=== PATIENT | female | born 1975 | race Caucasian/White ===

== ENCOUNTER 2020-12-23 08:00 | Outpatient (RCR) | payer BC, SELFPAY ==
--- NOTE | 2020-11-13 16:53 | PTOPEVAL ---
INITIAL PHYSICAL THERAPY EVALUATION and PLAN OF CARE Thank you for referring Cortney Pierre to [facility] [place].? Cortney is scheduled to be seen for physical therapy? 1x/week for 6 weeks. Please review, sign, date and return this plan of care DANELLE. I agree with and certify that the following plan of care is medically necessary. Referring Physician Date Admitting Provider: Attending Provider: Grady Watson MD Referring Provider: *PT Outpatient Evaluation Start: 11/13/20 09:10 Freq: Status: Active Protocol: Document 11/13/20 09:10 DELANEY (Rec: 11/13/20 10:33 DELANEY [id number]) Therapy Assessment Status Assessment Status Assessment Status Evaluation Outpatient Past Medical History Past Medical History Source of Past Medical History Patient Gastrointestinal History Hx Irritable Bowel Yes Genitourinary History Hx Urinary Tract Infection Yes Evaluation Information Problem Diagnosis pelvic pain, urinary urgency, stress incontinence Onset x many years Subjective Information Used to be able to go many Query Text:As Reported By Patient/ hours without having to go to Family the bathroom, kind of felt like she has UTI's - if she doesn't drink enough water. Testing in office was negative , but cultured results showed positive results. Was given amitriptyline - initially helped - but now noticing not as helpful. Prior Level of Function Activity Level (Last 3 Months) Occupation cook Hand Dominance Right Medications Home Meds (Include: OTC, RX, Vitamins, questran, amitriptyline Herbals, Dose, Route,and Frequency) Query Text:Home Med Entries Will No Longer Recall From Past Visits. Home Meds Must Be Re-entered With Each Visit. Home Setting Home Type House,Multiple Levels Living Situation With Minor Child,With Spouse Mobility Assistive Devices (Used Last 3 None Months) Comments Additional Prior Level of Function recreation - hiking, bake Comments Pain Assessment Timing of Pain Assessment Timing of Pain Assessment Assessment Pain Scale Pain Scale Used Numeric (1 - 10) Self Report Pain Assessment Lower Abdomen Reported Pain Level 0 Pain Description Burning,Dull,Sharp Lowest Pain Intensity 0 Greatest Pain Intensity 8 Pain Score Pain Score 0: Self Report Cervical and Lumbar ROM Lumbar ROM Lumbar ROM
--- NOTE | 2020-12-23 08:56 | PTOPEVAL ---
PHYSICAL THERAPY DISCHARGE SUMMARY Thank you for referring Cortney Pierre to [facility] [place].? Cortney has done well in PT - goals met. She is to continue with her HEP. I agree with Cortney's discharge from PT. Referring Physician Date Admitting Provider: Attending Provider: Grady Watson MD Referring Provider: Therapy Assessment Status Assessment Status Assessment Status Discharge Outpatient Past Medical History Past Medical History Source of Past Medical History Patient Gastrointestinal History Hx Irritable Bowel Yes Genitourinary History Hx Urinary Tract Infection Yes Evaluation Information Problem Diagnosis pelvic pain, urinary urgency, stress incontinence Subjective Information Cortney reports no abdominal Query Text:As Reported By Patient/ discomfort. Has noticed that Family she gets the discomfort right before her usual menses cycle. No increased urinary irritation sensation present now. Still using pantiliners - but for the most part they are dry. Pain Assessment Self Report Pain Assessment Lower Abdomen Reported Pain Level 0 Lowest Pain Intensity 0 Greatest Pain Intensity 0 Pelvic Health Evaluation Pelvic Floor Assessment Permission Received for External/ Yes: stayed external Internal Perineal Exam Sustained Levator Ani Strength 3+/5 Quick Levator Ani Contraction in 15 7 Seconds PT Clinical Summary Clinical Summary Protocol: PTEVCODE PT Clinical Summary Incontinence Impact Questionnaire - 0% Urogenital Distress Inventory - 22% Cortney is doing well with pelvic floor strengthening, decreasing urinary incontinence - stress and urge , and decrease with abdominal/ pelvic pain. She has met goals set. She is independent and compliant with HEP which she is to continue performing. She is ready for d/c from PT at this time.
== END 2020-12-24 14:43 | disposition home or self-care (01) ==
LOC: ANHPT 08:00
PROVIDERS: PCP Family Medicine; Visit Provider Urology
DX: N39.3 Stress incontinence (female) (male) (principal); R10.2 Pelvic and perineal pain; R39.15 Urgency of urination
CPT/HCPCS: 97014; 97110; 97140; 97161; G0283

== ENCOUNTER → 2021-07-02 14:14 | Outpatient (CLI) | payer BC, SELFPAY ==
--- NOTE | ~2021-07-02 | US_ITS ---
US retroperitoneal comp 07/02/2021 14:32 Procedure: Realtime transabdominal ultrasound of the kidneys and bladder. Indication: Pelvic and perineal pain Comparison: No prior studies for comparison. Findings: Renal echotexture is normal bilaterally without hydronephrosis, contour deforming mass or r enal calculus. The right kidney measures 8.9 cm and left kidney measures 8.3 cm. Bladder within norm al limits. Impression: 1: Unremarkable renal ultrasound. No stones, masses or hydronephrosis. Reviewed, dictated and finalized at location A. CAL TRANSCRIPTION SUPERVISOR Impression: 1: Unremarkable renal ultrasound. No stones, masses or hydronephrosis.
== END ==
PROVIDERS: Visit Provider Nurse Practitioner Adult Health
DX: R10.2 Pelvic and perineal pain (principal)
CPT/HCPCS: 76770

== ENCOUNTER 2025-02-25 13:47 | Outpatient (CLI) | payer OTHER, SELFPAY ==
--- NOTE | ~2025-02-25 | MM_ITS ---
EXAMINATION: MM screening pura BI w johnie HISTORY: Screening TECHNIQUE: Craniocaudal and mediolateral oblique 3-D tomosynthesis images were obtained and synthetic 2-D images were generated. CAD analysis was submitted and interpreted. COMPARISON: No prior mammogram is available for comparison at this institution. BREAST PARENCHYMAL COMPOSITION: Not dense: There are scattered areas of fibroglandular density. FINDINGS: There is a 3 cm mass in the upper outer quadrant of the right breast, anterior-middle depth . There is no mammographic evidence for malignancy in the left breast. IMPRESSION: 1. Right breast mass, upper outer quadrant. 2. Additional mammographic views and possible breast ultrasound are recommended. BI-RADS Category 0: Incomplete: Needs additional imaging evaluation. Reviewed, dictated and finalized at location A. IMPRESSION: 1. Right breast mass, upper outer quadrant. 2. Additional mammographic views and possible breast ultrasound are recommended . BI-RADS Category 0: Incomplete: Needs additional imaging evaluation.
--- OUTSIDE RECORDS SUMMARY | 2025-02-25 13:59 | XMS_ITS | Referral Summary ---
Author Organization [facility] [address] [facility] Address [address] [place] [address] Care Team Providers Care Mold Cleaner Name Role Phone Gerson Yusuf MD Primary Care Provider [phone] Allergies Active Allergy Reactions Criticality Noted Date Comments Cefpodoxime Rash Medium 07/28/2015 Cefprozil Rash Medium 05/09/2020 Iodine Rash Medium 05/09/2020 Other Hives Medium 07/28/2015 Medications colesevelam (WELCHOL) 625 mg tablet Take 3 tablets (1,875 mg total) by mouth 2 (two) times a day with meals 540 tablet 3 11/22/2023 Active Active Problems Problem Noted Date Diagnosed Date Migraine without aura and wi thout status migrainosus, not intractable 09/17/2021 Assessment & Plan (11/18/2021 4:29 PM CDT): Stable, well controlled; patient has only had 1 migraine since last visit Migraines spot well to sumatriptan 50 mg daily Continue to monitor no need for prophylactic treatment at this time Assessment & Plan (09/17/2021 12:14 PM LITIGATION ATTORNEY): Occurs with menstrual cycle, typically lasts for one day -will give trial of sumatriptan for management of migraine headache Irritable bowel syndrome with diarrhea 0 Overview (05/12/2020): Primary symptoms of diarrhea, bloating and abdominal cramping. Assessment & Plan (11/18/2021 4:28 PM CDT): Stable, well controlled, improved with current medications and decreased evidence of UTI pain Continue Welchol 1875 mg b.i.d. with breakfast and dinner Assessment & Plan (09/17/2021 12:12 PM LITIGATION ATTORNEY): Stable, well controlled on cholestyramine; patient is concerned regarding adverse effects of cholestyramnie; would like to try another bile acid sequestrant -today will give trial of Colesevelam; 1875 mg BID; follow-up in 2 months for response to therapy Assessment & Plan (05/12/2020 8:14 AM CDT): Stable, well controlled with cholestyrarmine daily. Continue present medications. Urethral pain 05/09/2020 Overview (05/09/2020): Due to recurrent UTI, since 2014 Assessment & Plan (11/18/2021 4:29 PM CDT): Stable, well controlled; patient has followed up with Urology which demonstrates no clear cause of recurrent infections Continue to treat for UTIs as needed No UTIs since last visit Assessment & Plan (09/17/2021 12:14 PM LITIGATION ATTORNEY): Continues to have recurrent UTIs, follows with urology -fluconzaole 150 mg once, for vaginal candidiasis secondary to antibiotic use Assessment & Plan (05/12/2020 8:16 AM CDT): Pain is well controlled with amitriptyline. Patient has referral to pelvic floor PT, but has not gone at this time. -Continue amitriptyline, fup with referral to PT Routine health maintenance 05/09/2020 Assessment & Plan (05/12/2020 8:16 AM CDT): Check routine labs today. Immunizations Immunization Administration Dates Next Due DTaP 08/22/1999 Flucelvax Influenza Quad 06/19/2019,06/26/2018,1 10/09/2016 Influenza, Quadrivalent, Kimmie l Culture-based MDCK, Preservative Free, Antibiotic Free, Intramuscular 06/23/2020 Influenza, Quadrivalent, Spl it, Preservative Free, Intramuscular 08/30/2016,07/07/2015 Influenza, Trivalent, IM (MDV) 07/08/2014 Influenza, Unspecified 06/27/2023,2021,09/17/2021(Defer red: Patient Refused),08/17/2021,08/22/2020(Deferre d: Patient Refused),06/23/2020 PPD TEST 09/26/2020 Social History Tobacco Use Types Packs/Day Years Used Date Smoking Tobacco: Never Smokeless Tobacco: Never Alcohol Use Standard Drinks/Week Comments Never 0 (1 standard drink = 0.6 oz pur e alcohol) AUDIT-C Answer Date Recorded Q1: How often do you have a drink containing alc ohol? Monthly or less 09/17/2021 Q2: How many drinks containi ng alcohol do you have on a typical day when you are drinking? 1 or 2 09/17/2021 Q3: How often do you have si x or more drinks on one occasion? Never 09/17/2021 PHQ-2 Answer Date Recorded PHQ-2 Total Score 0 11/17/2021 Personal Safety Answer Date Recorded Getting School Help Needed Not on file 11/02 Comments Unknown Sex and Gender Information Value Date Recorded Sex Assigned at Not on file Legal Sex Female 3:49 PM CDT Gender Identity Female 09/17/2021 7:24 AM LITIGATION ATTORNEY Sexual Orientation Straight 09/17/2021 7: 24 AM LITIGATION ATTORNEY Last Filed Vital Signs Vital Sign Reading Time Taken Comments Blood Pressure 132/95 03/27/2022 10:29 AM CDT Pulse 103 03/27/2022 10:29 AM CDT Temperature 37.6 C (99.7 F) 03/27/2022 10:29 AM CDT Respiratory Rate 16 03/27/2022 10:29 AM CDT Oxygen Saturation 97% 03/27/2022 10:29 AM CDT Inhaled Oxygen Concentration - - Weight 67.6 kg (149 lb) 03/27/2022 10:29 AM CDT Height 165.1 cm (5' 5) 03/27/2022 10:29 AM CDT Body Mass Index 24.79 03/27/2022 10:29 AM CDT Plan of Treatment Not on file Insurance [place] Care Teams Mold Cleaner Relationship Specialty Start Date End Date Gerson Yusuf MD [address] [place] [address] PCP - General Family Medicine 05/08/20
--- OUTSIDE RECORDS SUMMARY | 2025-02-25 13:59 | XMS_ITS | Clinical Summary ---
Author Organization [facility] Address [address], [facility] [address] [place] [address] Phone Care Team Providers Care Forest Nursery Supervisor Name Role Phone Vinicio Hui MD Primary Care Provider Allergies Active Allergy Reactions Criticality Noted Date Comments Cefpodoxime Rash 07/28/2015 Iodinated Contrast Media Hives 07/28/2015 Medications Multiple Vitamin (MULTI-VITAMIN PO) Take 1 Tab by mouth daily. Active CALCIUM PO Take 1 Tab by mouth daily. Active Psyllium (METAMUCIL PO) Take 0.5 Doses by mouth daily. Takes 1/2 tsp daily Active Digestive Enzymes (ENZYME DIGEST PO) Take 2 Tabs by mouth daily. ZYPAN Active LACTASE ENZYME PO Take 2 Tabs by mouth daily. LACT-ENZ Active esomeprazole (NEXIUM) 40 MG CAPSULE DELAYED RELEASE Take 1 Cap by mouth every morning (before breakfast). 30 Cap 6 07/29/2015 Active cholestyramine (QUESTRAN) 4 GM/DOSE Powder TAKE DIRECTED 1 Can 6 04/30/2019 Active Active Problems Problem Noted Date Diagnosed Date LUQ pain 07/15/2015 Gastric polyps 07/15/2015 Nausea 07/15/2015 Epigastric pain 07/15/2015 Immunizations Immunization Administration Dates Next Due DTAP VACCINE 08/22/1999 Influenza Vaccine greater than 3 yrs 07/07/2015 Family History Medical History Relation Name Comments Diabetes Father High Cholesterol Father Rashes/Skin Problems Mother Relation Name Status Comments Father Alive Mother Alive Social History Tobacco Use Types Packs/Day Years Used Date Smoking Tobacco: Never Smokeless Tobacco: Never Alcohol Use Standard Drinks/Week Comments No 0 (1 standard drink = 0.6 oz pur e alcohol) Comments No Sex and Gender Information Value Date Recorded Sex Assigned at Not on file Legal Sex Female 10:29 PM CDT Gender Identity Not on file Sexual Orientation Not on file 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 Not on file Not on file Not on aaron e Last Filed Vital Signs Vital Sign Reading Time Taken Comments Blood Pressure 106/72 07/29/2015 11:58 AM RETAIL ASSOCIATE Pulse 83 07/15/2015 2:05 PM RETAIL ASSOCIATE Temperature 36 C (96.8 F) 07/29/2015 11:58 AM RETAIL ASSOCIATE Respiratory Rate 11 07/29/2015 11:58 AM RETAIL ASSOCIATE Oxygen Saturation 99% 07/29/2015 11:58 AM RETAIL ASSOCIATE Inhaled Oxygen Concentration - - Weight 61.2 kg (135 lb) 07/28/2015 1:00 PM RETAIL ASSOCIATE Height 165.1 cm (5' 5) 07/28/2015 1:00 PM RETAIL ASSOCIATE Body Mass Index 22.47 07/28/2015 1:00 PM RETAIL ASSOCIATE Plan of Treatment Health Maintenance Due Date Last Done Comments Hepatitis C Virus (HCV) Screening 1977 Hepatitis B Immunization (1 of 3 - 19+ 3-dose series) 1996 Pap Smear 1998 Cervical Cancer Screening (CCS) 2007 HPV/Cotest 2007 Discussion re Starting/Frequ ency of Mammograms 2017 Colonoscopy 2022 06/12/2008 Colorectal Cancer Screening 2022 Influenza Immunization (#1) 2024 07/07/2015 SARS-COV-2 Immunization ( season) 2024 Respiratory Syncytial Virus (RSV) Immunization (Adult) (1 - 1-dose 75+ series) 2052 DTaP/Tdap/Td Immunization Discontinued 08/22/1999 Meningococcal Immunization (ACWY) Aged Out No longer eligible based on patient's age to complete this topic Pneumococcal Immunization Combined Aged Out No longer eligible b ased on patient's age to complete this topic Rotavirus Immunization Aged Out No lo nger eligible based on patient's age to complete this topic Procedures Procedure Name Priority Date/Time Associated Diagnosis Comments HM COLONOSCOPY Routine 06/12/2008 from Last 3 Months or Most Recently Relevant to Health Maintenance Results * COLONOSCOPY (06/12/2008) José Darrius Kenny DO PROCEDURE/MINOR SURGICAL ORDERA BLES Final Result from Last 3 Months or Most Recently Relevant to Health Maintenance Insurance [facility] Care Teams Forest Nursery Supervisor Relationship Specialty Start Date End Date Vinicio Hui MD [address] [place] [address] PCP - General Family Medicine 07/15/15
--- OUTSIDE RECORDS SUMMARY | 2025-02-25 13:59 | XMS_ITS | Data Portability ---
Author Organization [facility] Address [address] [place] [address] Care Team Providers Care Order Dispatcher Name Role Phone NICOLAS MOON Primary Care Provider Unavailab le Assessment Encounter Date Assessment Date Assessment LastModified by Organization Details LastModified Time 02/01/2024 02/01/2024 eye exam updated recent dentist is due mammogram is due, gyne orders colonoscopy due Not available 02/20/2024 00:37:22 02/05/2025 02/05/2025 eye exam updated recent dentist is UTD mammogram is due, still, we will order now. Colonoscopy/C ologuard due labs due Not available 02/05/2025 09:29:06 Plan of Treatment Reminders Order Date Submit Date Provider Last Modified By Organization Details Last Modified Time Details Appointments ANY 15 2025 08:00A M REMY Stewart Not available Not available Not available Lab TSH + free T4, serum 2024 025 JASEN Valladares, [address], [place], [address], 02/22/2025 07:07:37 CMP, serum or plasma 2024 025 JASEN Valladares, [address], [address], [place], [address], 02/22/2025 07:07:38 CBC w/ auto diff 2024 025 JASEN Valladares, [address], [address], [place], [address], 02/22/2025 07:07:41 vitamin B12 + folate, serum or blood 2024 025 [facility], [address], [address], [place], [address], 02/22/2025 07:07:39 lipid panel, serum 2024 025 [facility], [address], [address], [place], [address], 02/22/2025 07:07:36 noninvasi ve colorecta l cancer DNA + occult blood screening , QL, stool 2024 025 [facility] (Cologuard Orders Only), [address], [address], [place], [address], 02/05/2025 09:28:51 HbA1c (hemoglob in A1c), blood 2024 025 [facility], [address], [address], [place], [address], 02/22/2025 07:07:40 TSH + free T4, serum 2023 024 [facility], [address], [address], [place], [address], 02/10/2024 12:37:32 noninvasi ve colorecta l cancer DNA + occult blood screening , QL, stool 2023 024 [email or web address] [facility] (Cologuard Orders Only), [address], [address], [place], [address], 10/01/2024 12:07:12 CMP, serum or plasma 2023 024 [facility], [address], [address], [place], [address], 02/10/2024 12:37:33 CBC w/ auto diff 2023 024 [facility], [address], [address], [place], [address], 02/10/2024 12:37:35 vitamin B12 + folate, serum or blood 2023 024 [facility], [address], [address], [place], [address], 02/10/2024 12:37:34 lipid panel, serum 2023 024 [facility], [address], [address], [place], [address], 02/10/2024 12:37:32 HbA1c (hemoglob in A1c), blood 2023 024 [facility], [address], [address], [place], [address], 02/10/2024 12:37:34 Referral None recorded. Procedures None recorded. Surgeries None recorded. Imaging MAMMO, screening , digital, bilateral 2024 025 [facility] (Imaging), [address] [place] [address], [address], 02/05/2025 09:50:40 Medication Orders Bactrim DS 800 mg-160 mg tablet 2024 025 [facility] [address] [place], [address], 02/05/2025 09:27:25 Uribel 118 mg-10 mg-40.8 mg-36 mg capsule 2024 025 [facility] [address] [place], [address], 02/05/2025 09:28:24 sumatript an 50 mg tablet 2023 024 [facility] [address] [place], [address], 02/05/2025 09:07:03 Patient TargetsNo targets recorded. Patient InstructionsNo instructions recorded. Reason for Referral None Reported. Results Created Date Observation Date Name Description Value Unit Range Abnormal Flag Note LastModifiedBy Organization Detail LastModifiedTime 02/01/20 25 01/31/2025 COLOG UARD cologuard result Cancel led - Order d not applic able Not Available [facility] (Cologuard Orders Only) [address], [place], [address], 01/31/2025 04:06:14 02/09/20 24 02/10/2024 LIPID PANEL W/ CHOL/ HDL RATIO cholesterol, total 275 mg/dL 100-19 9 above high normal Not Available [facility] ([facility]) [address] [place], [address], 02/10/2024 12:37:32 02/09/20 24 02/10/2024 LIPID PANEL W/ CHOL/ HDL RATIO triglyceride s 127 mg/dL 0-149 Not Available [facility] ([facility]) [address] [place], [address], 02/10/2024 12:37:32 02/09/20 24 02/10/2024 LIPID PANEL W/ CHOL/ HDL RATIO HDL cholesterol 62 mg/dL >39 Not Available [facility] ([facility]) [address] [place], [address], 02/10/2024 12:37:32 02/09/20 24 02/10/2024 LIPID PANEL W/ CHOL/ HDL RATIO VLDL cholesterol ayah 23 mg/dL 5-40 Not Available [facility] ([facility]) [address] [place], [address], 02/10/2024 12:37:32 02/09/20 24 02/10/2024 LIPID PANEL W/ CHOL/ HDL RATIO LDL chol calc ([facility]) 190 mg/dL 0-99 above high normal Not Available [facility] ([facility]) [address] [place], [address], 02/10/2024 12:37:32 02/09/20 24 02/10/2024 LIPID PANEL W/ CHOL/ HDL RATIO T. chol/HDL ratio 4.4 ratio 0.0-4. 4 T. Chol/ HDL Ratio Men Women 1/2 Avg.R isk 3.4 3.3 Avg.R isk 5.0 4.4 2X Avg.R isk 9.6 7.1 3X Avg.R isk 23.4 11.0 Not Available [facility] ([facility]) [address] [place], [address], 02/10/2024 12:37:32 02/09/20 24 02/10/2024 TSH+F REE T4 TSH 1.950 uIU/m L 0.450- 4.500 Not Available [facility] ([facility]) [address] [place], [address], 02/10/2024 12:37:32 02/09/20 24 02/10/2024 TSH+F REE T4 T4,free(dire ct) 1.19 NG/dL 0.82-1 .77 Not Available [facility] ([facility]) [address] [place], [address], 02/10/2024 12:37:32 02/09/20 24 02/10/2024 COMP. METAB OLIC PANEL (14) glucose 89 mg/dL 70-99 Not Available [facility] ([facility]) [address] [place], [address], 02/10/2024 12:37:33 02/09/20 24 02/10/2024 COMP. METAB OLIC PANEL (14) BUN 16 mg/dL 6-24 Not Available [facility] ([facility]) [address] [place], [address], 02/10/2024 12:37:33 02/09/20 24 02/10/2024 COMP. METAB OLIC PANEL (14) creatinine 0.61 mg/dL 0.57-1 .00 Not Available [facility] ([facility]) [address] [facility] [place], [address], 02/10/2024 12:37:33 02/09/20 24 02/10/2024 COMP. METAB OLIC PANEL (14) eGFR 112 mL/mi n/1.7 3 >59 Not Available [facility] ([facility]) [address] [facility] [place], [address], 02/10/2024 12:37:33 02/09/20 24 02/10/2024 COMP. METAB OLIC PANEL (14) BUN/creatini ne ratio 26 9-23 above high normal Not Available [facility] ([facility]) [address] [facility], [place], [address], 02/10/2024 12:37:33 02/09/20 24 02/10/2024 COMP. METAB OLIC PANEL (14) sodium 136 mmol/ L 134-14 4 Not Available [facility] ([facility]) [address] [place], [address], 02/10/2024 12:37:33 02/09/20 24 02/10/2024 COMP. METAB OLIC PANEL (14) potassium 4.5 mmol/ L 3.5-5. 2 Not Available [facility] ([facility]) [address] [place], [address], 02/10/2024 12:37:33 02/09/20 24 02/10/2024 COMP. METAB OLIC PANEL (14) chloride 99 mmol/ L 96-106 Not Available [facility] ([facility]) [address] [place], [address], 02/10/2024 12:37:33 02/09/20 24 02/10/2024 COMP. METAB OLIC PANEL (14) carbon dioxide, total 25 mmol/ L 20-29 Not Available [facility] ([facility]) [address] [place], [address], 02/10/2024 12:37:33 02/09/20 24 02/10/2024 COMP. METAB OLIC PANEL (14) calcium 9.5 mg/dL 8.7-10 .2 Not Available [facility] ([facility]) [address] [facility], [place], [address], 02/10/2024 12:37:33 02/09/20 24 02/10/2024 COMP. METAB OLIC PANEL (14) protein, total 7.3 g/dL 6.0-8. 5 Not Available [facility] ([facility]) [address] [facility], [place], [address], 02/10/2024 12:37:33 02/09/20 24 02/10/2024 COMP. METAB OLIC PANEL (14) albumin 4.5 g/dL 3.9-4. 9 Not Available [facility] ([facility]) [address] [facility] [place], [address], 02/10/2024 12:37:33 02/09/20 24 02/10/2024 COMP. METAB OLIC PANEL (14) globulin, total 2.8 g/dL 1.5-4. 5 Not Available [facility] ([facility]) [address] [facility] [place], [address], 02/10/2024 12:37:33 02/09/20 24 02/10/2024 COMP. METAB OLIC PANEL (14) bilirubin, total 0.7 mg/dL 0.0-1. 2 Not Available [facility] ([facility]) [address] [facility], [place], [address], 02/10/2024 12:37:33 02/09/20 24 02/10/2024 COMP. METAB OLIC PANEL (14) alkaline phosphatase 76 IU/L 44-121 Not Available [facility] ([facility]) [address] [facility], [place], [address], 02/10/2024 12:37:33 02/09/20 24 02/10/2024 COMP. METAB OLIC PANEL (14) AST (SGOT) 24 IU/L 0-40 Not Available [facility] ([facility]) [address] [place], [address], 02/10/2024 12:37:33 02/09/20 24 02/10/2024 COMP. METAB OLIC PANEL (14) ALT (SGPT) 32 IU/L 0-32 Not Available [facility] ([facility]) [address] [facility], [place], [address], 02/10/2024 12:37:33 02/09/20 24 02/10/2024 VITAM IN B12 AND FOLAT E vitamin B12 798 pg/mL 232-12 45 Not Available [facility] ([facility]) [address] [facility], [place], [address], 02/10/2024 12:37:34 02/09/20 24 02/10/2024 VITAM IN B12 AND FOLAT E folate (folic acid), serum >20.0 NG/mL >3.0 A serum folat e luke ntrat ion of less than 3.1 ng/mL is consi dered to repre sent clini ayah defic iency . Not Available [facility] ([facility]) [address] [facility], [place], [address], 02/10/2024 12:37:34 02/09/20 24 02/10/2024 HEMOG LOBIN A1C hemoglobin A1C 5.4 % 4.8-5. 6 Predi abete s: 5.7 - 6.4 Diabe pacheco: >6.4 Glyce karissa contr ol for adult s with diabe pacheco: <7.0 Not Available [facility] ([facility]) [address] [place], [address], 02/10/2024 12:37:34 02/09/20 24 02/10/2024 CBC WITH DIFFE RENTI AL/PL ATELE T WBC 6.7 x10e3 /uL 3.4-10 .8 Not Available [facility] ([facility]) [address] [facility], [place], [address], 02/10/2024 12:37:35 02/09/20 24 02/10/2024 CBC WITH DIFFE RENTI AL/PL ATELE T RBC 5.18 x10e6 /uL 3.77-5 .28 Not Available [facility] ([facility]) [address] [facility], [place], [address], 02/10/2024 12:37:35 02/09/20 24 02/10/2024 CBC WITH DIFFE RENTI AL/PL ATELE T hemoglobin 15.2 g/dL 11.1-1 5.9 Not Available [facility] ([facility]) [address] [facility], [place], [address], 02/10/2024 12:37:35 02/09/20 24 02/10/2024 CBC WITH DIFFE RENTI AL/PL ATELE T hematocrit 46.3 % 34.0-4 6.6 Not Available [facility] ([facility]) [address] [place], [address], 02/10/2024 12:37:35 02/09/20 24 02/10/2024 CBC WITH DIFFE RENTI AL/PL ATELE T MCV 89 fL 79-97 Not Available [facility] ([facility]) [address] [place], [address], 02/10/2024 12:37:35 02/09/20 24 02/10/2024 CBC WITH DIFFE RENTI AL/PL ATELE T MCH 29.3 pg 26.6-3 3.0 Not Available [facility] ([facility]) [address] [place], [address], 02/10/2024 12:37:35 02/09/20 24 02/10/2024 CBC WITH DIFFE RENTI AL/PL ATELE T MCHC 32.8 g/dL 31.5-3 5.7 Not Available [facility] ([facility]) [address] [facility], [place], [address], 02/10/2024 12:37:35 02/09/20 24 02/10/2024 CBC WITH DIFFE RENTI AL/PL ATELE T RDW 12.1 % 11.7-1 5.4 Not Available [facility] ([facility]) [address] [facility], [place], [address], 02/10/2024 12:37:35 02/09/20 24 02/10/2024 CBC WITH DIFFE RENTI AL/PL ATELE T platelets 366 x10e3 /uL 150-45 0 Not Available [facility] ([facility]) [address] [facility], [place], [address], 02/10/2024 12:37:35 02/09/20 24 02/10/2024 CBC WITH DIFFE RENTI AL/PL ATELE T neutrophils 60 % notest ab. Not Available [facility] ([facility]) [address] [facility], [place], [address], 02/10/2024 12:37:35 02/09/20 24 02/10/2024 CBC WITH DIFFE RENTI AL/PL ATELE T lymphs 27 % notest ab. Not Available [facility] ([facility]) [address] [facility], [place], [address], 02/10/2024 12:37:35 02/09/20 24 02/10/2024 CBC WITH DIFFE RENTI AL/PL ATELE T monocytes 10 % notest ab. Not Available [facility] ([facility]) [address] [facility], [place], [address], 02/10/2024 12:37:35 02/09/20 24 02/10/2024 CBC WITH DIFFE RENTI AL/PL ATELE T eos 2 % notest ab. Not Available [facility] ([facility]) [address] [place], [address], 02/10/2024 12:37:35 02/09/20 24 02/10/2024 CBC WITH DIFFE RENTI AL/PL ATELE T basos 1 % notest ab. Not Available [facility] ([facility]) [address] [place], [address], 02/10/2024 12:37:35 02/09/20 24 02/10/2024 CBC WITH DIFFE RENTI AL/PL ATELE T neutrophils (absolute) 4.0 x10e3 /uL 1.4-7. 0 Not Available [facility] ([facility]) [address] [place], [address], 02/10/2024 12:37:35 02/09/20 24 02/10/2024 CBC WITH DIFFE RENTI AL/PL ATELE T lymphs (absolute) 1.8 x10e3 /uL 0.7-3. 1 Not Available [facility] ([facility]) [address] [place], [address], 02/10/2024 12:37:35 02/09/20 24 02/10/2024 CBC WITH DIFFE RENTI AL/PL ATELE T monocytes(ab solute) 0.7 x10e3 /uL 0.1-0. 9 Not Available [facility] ([facility]) [address] [place], [address], 02/10/2024 12:37:35 02/09/20 24 02/10/2024 CBC WITH DIFFE RENTI AL/PL ATELE T eos (absolute) 0.1 x10e3 /uL 0.0-0. 4 Not Available [facility] ([facility]) [address] [place], [address], 02/10/2024 12:37:35 02/09/20 24 02/10/2024 CBC WITH DIFFE RENTI AL/PL ATELE T baso (absolute) 0.1 x10e3 /uL 0.0-0. 2 Not Available [facility] ([facility]) [address] [facility], [place], [address], 02/10/2024 12:37:35 02/09/20 24 02/10/2024 CBC WITH DIFFE RENTI AL/PL ATELE T immature granulocytes 0 % notest ab. Not Available [facility] ([facility]) [address] [facility], [place], [address], 02/10/2024 12:37:35 02/09/20 24 02/10/2024 CBC WITH DIFFE RENTI AL/PL ATELE T immature grans (abs) 0.0 x10e3 /uL 0.0-0. 1 Not Available [facility] ([facility]) [address] [facility], [place], [address], 02/10/2024 12:37:35 Result Notes None recorded. Problems Name Problem SNOMED Code Status Onset Date Resolution Date Notes Provider Name and Address Organization Details Recorded Time Irritable bowel syndrome with diarrhea 629792347 Active 2023 REMY Stewart Attn: Sheldon moser,[address] [facility], [place], [address], [place] [facility] 4 00:36:40 Migraine 51252691 Active 2023 REMY Stewart Attn: Sheldon moser,[address] [facility], [place], [address], [place] [facility] 4 00:36:51 Long-term drug therapy Active 2023 REMY Stewart Attn: Sheldon g,[address] [facility], [place], [address], [place] [facility] 4 00:36:55 Body mass index 20-24 - normal 495368002 Active 2024 Caridad Melchor MA null, [facility] 5 09:08:01 Hyperlipidemia 88694539 Active 2024 REMY Stewart Attn: Sheldon moser,[address], [place], [address], [facility] 5 09:29:08 Problem Notes None recorded. Procedures Surgical History Date Name Laterality Status Provider Name and Address Organization Details Recorded Time Tonsillectomy completed Caridad Melchor MA [facility] 02/01/2024 12:18:59 Imaging Results None recorded. Procedure Notes None recorded. Medical Equipment None Reported. Allergies Allergen ID Allergen Name Allergen Category Reaction Reaction Severity Criticality Documentation Date Start Date Code Code System Note Provider Name and Address Organization Details Recorded Time 17391023 Cefzil medicatio n rash severe high 03/07/2024 70796 1 RxNorm Shantelle Stewart LPN null, [facility] 4 10:54:55 Medications Name Sig Start Date Stop Date Status Note LastModified by Organization Details LastModified Time fluconazole 150 mg tablet TAKE 1 TABLET BY MOUTH EVERY 72 HOURS 02/05 completed Not Available Not Available Not Available sumatriptan 100 mg tablet Take by oral route. 01/31 completed 50mg Not Available Not Available Not Available prednisone 20 mg tablet TAKE 1 TABLET BY MOUTH IN THE MORNING AND AT NOON AND AT BEDTIME , DO ALL THIS FOR 5 DAYS , TAKE WITH FOOD 02/05 completed Not Available Not Available Not Available sumatriptan 50 mg tablet take 1 tab po at onset of migraine. may repeat in 1 hour if needed. max 200mg/24 hours. active prn Not Available Not Available No t Available ciprofloxac in 500 mg tablet TAKE 1 TABLET BY MOUTH TWICE DAILY WHEN HAVING SYMPTOMS OF UTI 02/05 completed Not Available Not Available Not Available sulfamethox azole 800 mg-trimetho prim 160 mg tablet TAKE 1 TABLET BY MOUTH EVERY 12 HOURS active Not Available Not Available No t Available famotidine 20 mg tablet TAKE 1 TABLET BY MOUTH IN THE MORNING AND AT BEDTIME , DO ALL THIS FOR 7 DAYS 02/05 completed Not Available Not Available Not Available colesevelam 625 mg tablet TAKE 3 TABLETS BY MOUTH TWICE DAILY WITH MEALS 02/05 completed Not Available Not Available Not Available cholestyram ine (with sugar) 4 gram oral powder Take by oral route for 42 days. active Not Available Not Available No t Available Uro-MP 118 mg-10 mg-40.8 mg-36 mg capsule TAKE 1 CAPSULE BY MOUTH 4 TIMES DAILY NEEDED FOR URINARY INFECTION active Not Available Not Available No t Available Vitals Date Recorded Body height Body mass index (BMI) Body weight Respiratory rate Oxygen saturation Oxygen saturation in Arterial blood by Pulse oximetry Heart rate Systolic And Diastolic Provider Name and Address Organization Details Last Updated DateTime 4 167.64 cm 24.1 kg/m2 70032.6 2 g 20 /min 99 % 99 % 108 /min 136/82 mm[Hg] Caridad Melchor MA [facility] 4 11:43:22 Date Recorded Respiratory rate Systolic And Diastolic Provider Name and Address Organization Details Last Updated DateTime 02/05/2025 18 /min 110/80 mm[Hg] REMY Stewart Attn: Accounting[address] [place], [address], [facility] 02/05/2025 09:32:09 Date Recorded Body weight Body mass index (BMI) Body height Oxygen saturation Oxygen saturation in Arterial blood by Pulse oximetry Heart rate Systolic And Diastolic Provider Name and Address Organization Details Last Updated DateTime 5 [address]10.4 9 g 23.6 kg/m2 167.64 cm 98 % 98 % 118 /min 142/80 mm[Hg] Caridad Melchor MA [facility] 5 09:09:19 Social History Question Answer Notes LastModified by Organizat ion Details LastModified Time Tobacco Smoking Status Never Smoker Caridad Melchor MA null, [facility] 01/31/2024 12:10:46 Do You Have An Advance Directive? Yes Information not available 02/01/2024 Are You Blind Or Do You Have Difficulty Seeing? No Glasses Information not available 01/31/2024 What Is Your Level Of Caffeine Consumption? Occasional Sometimes Information not available 01/31/2024 In The 14 Days Before Symptom Onset, Have You Had Close Contact With A Laboratory-confir med COVID-19 While That Case Was Ill? No Information not available 01/31/2024 In The 14 Days Before Symptom Onset, Have You Had Close Contact With A Person Who Is Under Investigation For COVID-19 While That Person Was Ill? No Information not available 01/31/2024 Have You Been To An Area Known To Be High Risk For COVID-19? No Information not available 01/31/2024 Are You Deaf Or Do You Have Serious Difficulty Hearing? No Information not available 01/31/2024 Are There Any Guns Present In Your Home? No Information not available 01/31/2024 What Was The Date Of Your Most Recent Tobacco Screening? 02/05/2025 Information not available 02/05/2025 Do You Use Your Seat Belt Or Car Seat Routinely? Yes Information not available 01/31/2024 Do You Have Smoke And Carbon Monoxide Detectors In Your Home? Yes Information not available 01/31/2024 Do You Use Sunscreen Routinely? No Information not available 01/31/2024 Has Tobacco Cessation Counseling Been Provided? Yes Information not available 01/31/2024 On What Date Was Tobacco Cessation Counseling Provided? 02/05/2025 Information not available 02/05/2025 Sex: Female Functional Status Question Answer Note LastModified by Organizat ion Details LastModified Time Do you use any illicit or recreational drugs? No Information not available 01/31/2024 Do you or have you ever used any other forms of tobacco or nicotine? No Information not available 01/31/2024 What is your level of alcohol consumption? Occasional Information not available 01/31/2024 Are you currently employed? Yes Information not available 02/05/2025 Are you able to care for yourself? Yes Information n ot available 01/31/2024 What is your exercise level? Occasional Information not available 01/31/2024 Mental Status None recorded. Family History Relationship Description Onset Age of this Age Resolved Age Notes LastModified by Organization Details LastModified Time Father Depressive disorder [email or web address] Not available 2023 12:19:11 Father Hypertensive disorder [email or web address] Not available 2023 12:19:18 Medical History Condition Response Coronary Artery Disease N Other N Atrial Fibrillation N High Blood Pressure N Depression N COPD N Blood Clots N Anxiety Disorder N Muscle, Joint, or Bone Problems N Acid Reflux (GERD) N Cancer N Stroke N High Cholesterol N Liver Disease N Headaches Y Kidney or Bladder Problems N Thyroid Problems N GI Problems Y Skin Problems N Anemia N Heart Attack ([place]) N Diabetes N Seizures/Epilepsy N Asthma N Allergies N Hepatitis N Heart Failure N Osteoporosis N Gynecological History Statement/Question Response Flow Moderate Date of LMP 01/16/2025 Menses Monthly Y Duration of Flow (days) 5 Current Control Method None LMP Definite Obstetrics History GPAL:G 2 P 2 0 0 2 Type Value Full Term 2 Induced 0 Spontaneous 0 Premature 0 Living 2 Total 2 Immunizations Vaccine Type Date Status Note Provider Nam e and Address Organization Details Recorded Time DTaP 0 completed Not Available [facility] 02/05/2025 09:06:02 Influenza, split virus, trivalent, preservative 4 completed Not Available [facility] 02/05/2025 09:06:02 Influenza, split virus, quadrivalent, PF 5 completed Not Available [facility] 02/05/2025 09:06:02 Influenza, split virus, quadrivalent, PF 7 completed Not Available [facility] 02/05/2025 09:06:02 Influenza, MDCK, quadrivalent, PF 7 completed Not Available [facility] 02/05/2025 09:06:02 Influenza, MDCK, quadrivalent, PF 8 completed Not Available [facility] 02/05/2025 09:06:02 Influenza, MDCK, quadrivalent, PF 9 completed Not Available [facility] 02/05/2025 09:06:02 Influenza, MDCK, quadrivalent, PF 0 completed Not Available [facility] 02/05/2025 09:06:02 COVID-19, mRNA, LNP-S, PF, 30 mcg/0.3 mL dose 1 completed Not Available [facility] 02/05/2025 09:06:02 COVID-19, mRNA, LNP-S, PF, 30 mcg/0.3 mL dose 1 completed Not Available [facility] 02/05/2025 09:06:02 Influenza, MDCK, quadrivalent, PF 1 completed Not Available [facility] 02/05/2025 09:06:02 COVID-19, mRNA, LNP-S, PF, 30 mcg/0.3 mL dose 1 completed Not Available [facility] 02/05/2025 09:06:02 Influenza, MDCK, quadrivalent, PF 2 completed Not Available [facility] 02/05/2025 09:06:02 Influenza, MDCK, quadrivalent, PF 3 completed Not Available [facility] 02/05/2025 09:06:02 Influenza, MDCK, trivalent, PF 4 completed Not Available [facility] 02/05/2025 09:06:02 Past Encounters Encounter ID Performer Location Encounter Start Date Encounter Closed Date Diagnosis/Indication Diagnosis SNOMED-CT Code Diagnosis ICD10 Code Diagnosis Note [id number] Seng Angela MD ON LICENSE OF [facility] [address] [employer] [id number] 02/01/2024 11:21:00 02/01/2024 12:16:49 Adult health examination 076612226 Z00.01 annual wellness completed Cholesterol screening 27 0532932 Z13.220 fasting lipids due. Diabetes m ellitus screening 342062387 Z13.1 a1c screening due Thyroid di sorder screening 036483961 Z13.29 routine thyroid panel due Migraine 93591301 G43.90 9 refill on sumatripta n 50mg as directed Irritable bowel syndrome with diarrhea 288070283 K58.0 on colesevela m tablets daily. Long-term drug therapy 330768085 Z79.899 cmp, cbc and b12, folate labs are due Screening for malignant neoplasm of colon 822588283 Z12.11 pt opts for cologuard screening method. [id number] Seng Angela MD ON LICENSE OF [facility] [employer] [facility] [place] [address] [place] [address] 02/05/2025 08:52:12 02/05/2025 09:46:53 Body mass index 20-24 - normal 475898512 Z68.23 BMI is 23.6 Adult heal th examination 946942486 Z00.01 annual wellness completed Diabetes m ellitus screening 902348510 Z13.1 a1c screening due Thyroid di sorder screening 671008542 Z13.29 routine thyroid panel due Migraine 04687107 G43.90 9 on sumatripta n 50mg as directed, stable Irritable bowel syndrome with diarrhea 110127483 K58.0 on colesevela m tablets daily. Long-term drug therapy 971038166 Z79.899 cmp, cbc and b12, folate labs are due Screening for malignant neoplasm of colon 664552416 Z12.11 pt opts for cologuard screening method. Hyperlipidemia 83803250 E78.5 History of hyperlipid emia, patient is not on medication directly but is on cholestyra mine tablets for her IBS D. Is due for updated fasting lipid panel Acute urin marcus tract infection 940740797 N39.0 For acute UTI symptoms start Bactrim DS twice daily and patient requests Uribel prescripti on Screening mammography 24 700260 Z12.31 Mammogram due Health Concerns Section Related Observation LastModified by Organization Detai ls LastModified Time None Recorded Concern Status LastModified by Organization Details LastModified Time None Recorded Advance Directives Directive Y: Payers Insurance Date Sequence Insurance Name Policy Number Policy Rice Covered Member ID Rice Member ID Guarantor Name 02/04/2025 1 [place] [id number] Ismael Pierre [id number] Cortney Burlesonx 02/05/2025 1 [employer] [id number] Ismael Pierre [id number] Cortney Pierre Notes Date Note Type Note Provider Name and Address Organization Details Recorded Time 02/01/2024 text/html IBS-D hx. pt takes questran capsules.Extensi ve UTI hx. full urology w/u. pelvic floor therapy did not help.migraine hx. pt has triptan therapy for PRN use. due for labs. due for colon screening. REMY Stewart Attn: Accounting,[address] [place], [address], [facility] 02/20/2024 00:37:38 02/05/2025 text/html IBS-D hx. pt takes questran capsules.Extensi ve UTI hx. full urology w/u. pelvic floor therapy did not help.migraine hx. pt has triptan therapy for PRN use.Due for labs and colon screening REMY Stewart Attn: Accounting,[address], [place], [address], [facility] 02/17/2025 21:18:51 OBGyn Episode No OBEpisode recorded.
--- OUTSIDE RECORDS SUMMARY | 2025-02-25 13:59 | XMS_ITS | Clinical Summary ---
Author Organization [facility] [place] [facility] Address [address] [place] [address] Care Team Providers Care Slitter Cut Off Operator Name Role Phone Gerson Yusuf MD Primary Care Provider [phone] Allergies Active Allergy Reactions Criticality Noted Date [...] time Assessment & Plan (09/17/2021 12:14 PM CUSTOMER ASSISTANCE ASSOCIATE): Occurs with menstrual cycle, typically lasts for [...] dinner Assessment & Plan (09/17/2021 12:12 PM CUSTOMER ASSISTANCE ASSOCIATE): Stable, well controlled on cholestyramine; patient is [...] visit Assessment & Plan (09/17/2021 12:14 PM CUSTOMER ASSISTANCE ASSOCIATE): Continues to have recurrent UTIs, follows with [...] Refused),08/17/2021,08/22/2020(Deferre d: Patient Refused),06/23/2020 PPD TEST 09/26/2020 Surgical History Surgery Date Site/Laterality Comments TONSILLECTOMY 08/22/1984 - 08/21/1985 Medical History Medical History Date Comments Irritable bowel syndrome 2009 UTI (urinary tract infection) 2014 Family History Medical History Relation Name Comments Diabetes Father Heart disease Paternal Grandfather Relation Name Status Comments Father Alive Mother Alive Paternal Grandfather Social History Tobacco Use Types Packs/Day Years [...] CDT Gender Identity Female 09/17/2021 7:24 AM CUSTOMER ASSISTANCE ASSOCIATE Sexual Orientation Straight 09/17/2021 7: 24 AM CUSTOMER ASSISTANCE ASSOCIATE Obstetrics History Last Filed Vital Signs Vital Sign Reading [...] 03/27/2022 10:29 AM CDT Plan of Treatment Health Maintenance Due Date Last Done Comments Breast Cancer Screening-Mammogram 1977 Cervical Cancer Screening 1977 Colon Cancer Screening-Colonoscopy 1977 Hepatitis C Screening 1977 Hepatitis B Screening 1995 Regular Well Visit/Exam 18-64 1995 Depression Screening 11/17/2022 11/17/2021, 09/17/2021, 05/09/2020 Influenza Vaccine (#1) 2025 3, 06/23/2022, 08/17/2021, Additional history exists DTaP/Tdap/Td Vaccine Discontinued 08/22/1999 Pneumococcal vaccine <65 Aged Out No longer eligible based on patient's age to complete this topic Insurance [facility] [place] [facility] Care Teams Slitter Cut Off Operator Relationship Specialty Start Date End Date [place] [address] PCP - General Family Medicine 05/08/20
== END 2025-02-25 13:48 | disposition home or self-care (01) ==
LOC: CHSIMG 13:54
PROVIDERS: PCP Physician Assistant; Visit Provider Physician Assistant
DX: Z12.31 Encounter for screening mammogram for malignant neoplasm of breast (principal); R92.8 Other abnormal and inconclusive findings on diagnostic imaging of breast
CPT/HCPCS: 77063; 77067

== ENCOUNTER 2025-03-05 09:41 | Outpatient (CLI) | payer OTHER, SELFPAY ==
--- NOTE | ~2025-03-05 | MMUS_ITS ---
EXAMINATION: MM diagnostic pura BI w johnie, US breast RT limited HISTORY: Follow-up right breast mass TECHNIQUE: Additional 3-D tomosynthesis images of the right breast were performed and synthetic 2-D i mages were generated. CAD analysis was submitted and interpreted. High resolution Limited right breas t ultrasound was performed. COMPARISON: 02/25/2025 BREAST PARENCHYMAL COMPOSITION: Not dense: There are scattered areas of fibroglandular density. FINDINGS: MAMMOGRAPHIC FINDINGS: There is a mass in the mid outer aspect of the right breast at approximately 9:00, anterior-middle de pth. There are no additional masses, calcifications or architectural distortion in the right breast. ULTRASOUND: Limited right breast ultrasound: At 10:00, 1-2 cm from the nipple there is a cyst corresponding to th e mammographic finding measuring 2.8 cm. No suspicious solid masses are visualized. IMPRESSION: 1. No evidence for malignancy in the right breast. 2. Routine yearly screening mammogram and regular clinical breast examination are recommended. BI-RADS Category 2: Benign finding(s). Reviewed, dictated and finalized at location B. IMPRESSION: 1. No evidence for malignancy in the right breast. 2. Routine yearly screening mammogram and regular clinical breast examination a re recommended. BI-RADS Category 2: Benign finding(s).
--- OUTSIDE RECORDS SUMMARY | 2025-03-05 09:56 | XMS_ITS | Clinical Summary ---
Author Organization [facility] Address [address], 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 Not on file Not on file Not on aaron e Last Filed Vital Signs Vital Sign Reading Time Taken Comments Blood Pressure 106/72 07/29/2015 11:58 AM WHEEL ADJUSTER Pulse 83 07/15/2015 2:05 PM WHEEL ADJUSTER Temperature 36 C (96.8 F) 07/29/2015 11:58 AM WHEEL ADJUSTER Respiratory Rate 11 07/29/2015 11:58 AM WHEEL ADJUSTER Oxygen Saturation 99% 07/29/2015 11:58 AM WHEEL ADJUSTER Inhaled Oxygen Concentration - - Weight 61.2 kg (135 lb) 07/28/2015 1:00 PM WHEEL ADJUSTER Height 165.1 cm (5' 5) 07/28/2015 1:00 PM WHEEL ADJUSTER Body Mass Index 22.47 07/28/2015 1:00 PM WHEEL ADJUSTER Plan of Treatment Health Maintenance Due Date Last Done Comments Hepatitis C Virus (HCV) Screening 1977 Hepatitis B Immunization (1 of 3 - 19+ 3-dose series) 1996 Pap Smear 1998 Cervical Cancer Screening (CCS) 2007 HPV/Cotest 2007 Cologuard 2022 Colonoscopy 2022 06/12/2008 Colorectal Cancer Screening 2022 Immunochemical Fecal Occult Blood 2022 SARS-COV-2 Immunization ( season) 2024 Influenza Immunization (#1) 2025 07/07/2015 Respiratory Syncytial Virus (RSV) Immunization (Adult) (1 - 1-dose 75+ series) 2052 DTaP/Tdap/Td Immunization Discontinued 08/22/1999 Human Papillomavirus (HPV) Immunization Aged Out No longer eligible b ased on patient's age to complete this topic Meningococcal Immunization (ACWY) Aged Out No longer eligible based on patient's age to complete this topic Pneumococcal Immunization Combined Aged Out No longer eligible based on patient's age to complete this topic Rotavirus Immunization Aged Out No lo nger eligible based on patient's age to complete this topic Procedures Procedure Name Priority Date/Time Associated Diagnosis Comments COLONOSCOPY Routine 06/12/2008 from Last 3 Months or Most Recently Relevant to Health Maintenance Results * COLONOSCOPY (06/12/2008) José Darrius Asifcandywily MUELLER PROCEDURE/MINOR SURGICAL ORDERA BLES Final Result from Last 3 Months or Most Recently Relevant to Health Maintenance Insurance [facility] Care Teams Rope Cutter Relationship Specialty Start Date End Date Vinicio Hui MD [address] [place] [address] PCP - General Family Medicine 07/15/15
--- OUTSIDE RECORDS SUMMARY | 2025-03-05 09:56 | XMS_ITS | Referral Summary ---
Author Organization [facility] [place] [facility] Address [address] [place] [address] Care Team Providers Care Consumer Insights Specialist Name Role Phone Gerson Yusuf MD Primary Care Provider [phone] Allergies Active Allergy Reactions Criticality Noted Date [...] time Assessment & Plan (09/17/2021 12:14 PM COOK SOUP): Occurs with menstrual cycle, typically lasts for [...] dinner Assessment & Plan (09/17/2021 12:12 PM COOK SOUP): Stable, well controlled on cholestyramine; patient is [...] visit Assessment & Plan (09/17/2021 12:14 PM COOK SOUP): Continues to have recurrent UTIs, follows with [...] CDT Gender Identity Female 09/17/2021 7:24 AM COOK SOUP Sexual Orientation Straight 09/17/2021 7: 24 AM COOK SOUP Last Filed Vital Signs Vital Sign Reading [...] Treatment Not on file Insurance [facility] [place] [facility] Care Teams Consumer Insights Specialist Relationship Specialty Start Date End Date Gerson Yusuf MD [address] [place] [address] PCP - General Family Medicine 05/08/20
--- OUTSIDE RECORDS SUMMARY | 2025-03-05 09:56 | XMS_ITS | Data Portability ---
Author Organization [facility] Address [address] [place] [address] Care Team Providers Care Rehabilitation Services Aide Name Role Phone NICOLAS MOON Primary Care [...] JASEN Valladares, 2022 [address], [place], [address], 02/22/2025 07:07:37 CMP, serum or plasma 2024 025 JASEN Valladares, 2022 [address], [place], [address], 02/22/2025 07:07:38 CBC w/ auto diff 2024 025 JASEN Valladares, 2022 [address], [place], [address], 02/22/2025 07:07:41 vitamin B12 + folate, serum or blood 2024 025 [facility], 2022 [address], [place], [address], 02/22/2025 07:07:39 lipid panel, serum 2024 025 [facility], 2022 [address], [place], [address], 02/22/2025 07:07:36 noninvasi ve colorecta l cancer DNA + occult blood screening , QL, stool 2024 025 [facility] (Cologuard Orders Only), [address], [address], [place], [address], 02/05/2025 09:28:51 HbA1c (hemoglob in A1c), blood 2024 025 [facility], 2022 [address], [place], [address], 02/22/2025 07:07:40 TSH + free T4, serum 2023 024 [facility], 2022 [address], [address], [place], [address], 02/10/2024 12:37:32 noninvasi ve colorecta l cancer DNA + occult blood screening , QL, stool 2023 024 [email or web address] (Cologuard Orders Only), [address], [address], [place], [address], 10/01/2024 12:07:12 CMP, serum or plasma 2023 024 [facility], 2022 [address], [address], [place], [address], 02/10/2024 12:37:33 CBC w/ auto diff 2023 024 [facility], 2022 [address], [address], [place], [address], 02/10/2024 12:37:35 vitamin B12 + folate, serum or blood 2023 024 [facility], 2022 [address], [address], [place], [address], 02/10/2024 12:37:34 lipid panel, serum 2023 024 [facility], 2022 [address], [address], [place], [address], 02/10/2024 12:37:32 HbA1c (hemoglob in A1c), blood 2023 024 [facility], 2022 [address], [address], [place], [address], 02/10/2024 12:37:34 Referral None recorded. Procedures None recorded. Surgeries None recorded. Imaging MAMMO, screening , digital, bilateral 2024 025 [facility] (Imaging), [address] [place] [address], [address], 02/25/2025 17:22:48 Medication Orders Bactrim DS 800 mg-160 mg tablet 2024 025 [facility] [address] [place], [address], 02/05/2025 09:27:25 Uribel 118 mg-10 mg-40.8 mg-36 mg capsule 2024 025 [facility] [address] [place], [address], 02/05/2025 09:28:24 sumatript an 50 mg tablet 2023 024 [email or web address] [address] [place], [address], 02/05/2025 09:07:03 Patient TargetsNo targets recorded. Patient InstructionsNo instructions recorded. Reason for Referral None Reported. Results Created Date Observation Date Name Description Value Unit Range Abnormal Flag Note LastModifiedBy Organization Detail LastModifiedTime 02/01/20 25 01/31/2025 COLOG UARD cologuard result Cancel led - Order d not applic able Not Available [facility] (Cologuard Orders Only) [address], [place], [address], 01/31/2025 04:06:14 02/09/20 24 02/10/2024 LIPID PANEL W/ CHOL/ HDL RATIO cholesterol, total 275 mg/dL 100-19 9 above high normal Not Available [facility] ([facility]) [address] [place], [address], 02/10/2024 12:37:32 02/09/20 24 02/10/2024 LIPID PANEL W/ CHOL/ HDL RATIO triglyceride s 127 mg/dL 0-149 Not Available [facility] ([facility]) [address] [place], [address], 02/10/2024 12:37:32 02/09/20 24 02/10/2024 LIPID PANEL W/ CHOL/ HDL RATIO HDL cholesterol 62 mg/dL >39 Not Available [facility] ([facility]) [address] [place], [address], 02/10/2024 12:37:32 02/09/20 24 02/10/2024 LIPID PANEL W/ CHOL/ HDL RATIO VLDL cholesterol ayah 23 mg/dL 5-40 Not Available [facility] ([facility]) [address] [place], [address], 02/10/2024 12:37:32 02/09/20 24 02/10/2024 LIPID PANEL W/ CHOL/ HDL RATIO LDL chol calc ([facility]) 190 mg/dL 0-99 above high normal Not Available [facility] ([facility]) [address] [place], [address], 02/10/2024 12:37:32 02/09/20 24 02/10/2024 LIPID PANEL W/ CHOL/ HDL RATIO T. chol/HDL ratio 4.4 ratio 0.0-4. 4 T. Chol/ HDL Ratio Men Women 1/2 Avg.R isk 3.4 3.3 Avg.R isk 5.0 4.4 2X Avg.R isk 9.6 7.1 3X Avg.R isk 23.4 11.0 Not Available [facility] ([facility]) [address] [place], [address], 02/10/2024 12:37:32 02/09/20 24 02/10/2024 TSH+F REE T4 TSH 1.950 uIU/m L 0.450- 4.500 Not Available [facility] ([facility]) [address] [place], [address], 02/10/2024 12:37:32 02/09/20 24 02/10/2024 TSH+F REE T4 T4,free(dire ct) 1.19 NG/dL 0.82-1 .77 Not Available [facility] ([facility]) [address] [place], [address], 02/10/2024 12:37:32 02/09/20 24 02/10/2024 COMP. METAB OLIC PANEL (14) glucose 89 mg/dL 70-99 Not Available [facility] ([facility]) [address] [place], [address], 02/10/2024 12:37:33 02/09/20 24 02/10/2024 COMP. METAB OLIC PANEL (14) BUN 16 mg/dL 6-24 Not Available [facility] ([facility]) [address] [place], [address], 02/10/2024 12:37:33 02/09/20 24 02/10/2024 COMP. METAB OLIC PANEL (14) creatinine 0.61 mg/dL 0.57-1 .00 Not Available [facility] ([facility]) [address] [facility], [place], [address], 02/10/2024 12:37:33 02/09/20 24 02/10/2024 COMP. METAB OLIC PANEL (14) eGFR 112 mL/mi n/1.7 3 >59 Not Available [facility] ([facility]) [address] [facility], [place], [address], 02/10/2024 12:37:33 02/09/20 24 02/10/2024 COMP. METAB OLIC PANEL (14) BUN/creatini ne ratio 26 9-23 above high normal Not Available [facility] ([facility]) [address] [facility], [place], [address], 02/10/2024 12:37:33 02/09/20 24 02/10/2024 COMP. METAB OLIC PANEL (14) sodium 136 mmol/ L 134-14 4 Not Available [facility] ([facility]) [address] [place], [address], 02/10/2024 12:37:33 02/09/20 24 02/10/2024 COMP. METAB OLIC PANEL (14) potassium 4.5 mmol/ L 3.5-5. 2 Not Available [facility] ([facility]) [address] [place], [address], 02/10/2024 12:37:33 02/09/20 24 02/10/2024 COMP. METAB OLIC PANEL (14) chloride 99 mmol/ L 96-106 Not Available [facility] ([facility]) [address] [place], [address], 02/10/2024 12:37:33 02/09/20 24 02/10/2024 COMP. METAB OLIC PANEL (14) carbon dioxide, total 25 mmol/ L 20-29 Not Available [facility] ([facility]) [address] [facility], [place], [address], 02/10/2024 12:37:33 02/09/20 24 02/10/2024 COMP. METAB OLIC PANEL (14) calcium 9.5 mg/dL 8.7-10 .2 Not Available [facility] ([facility]) [address] [facility], [place], [address], 02/10/2024 12:37:33 02/09/20 24 02/10/2024 COMP. METAB OLIC PANEL (14) protein, total 7.3 g/dL 6.0-8. 5 Not Available [facility] ([facility]) [address] [facility], [place], [address], 02/10/2024 12:37:33 02/09/20 24 02/10/2024 COMP. METAB OLIC PANEL (14) albumin 4.5 g/dL 3.9-4. 9 Not Available [facility] ([facility]) [address] [facility], [place], [address], 02/10/2024 12:37:33 02/09/20 24 02/10/2024 COMP. METAB OLIC PANEL (14) globulin, total 2.8 g/dL 1.5-4. 5 Not Available [facility] ([facility]) [address] [facility], [place], [address], 02/10/2024 12:37:33 02/09/20 24 02/10/2024 COMP. METAB OLIC PANEL (14) bilirubin, total 0.7 mg/dL 0.0-1. 2 Not Available [facility] ([facility]) [address] [facility] [place], [address], 02/10/2024 12:37:33 02/09/20 24 02/10/2024 COMP. METAB OLIC PANEL (14) alkaline phosphatase 76 IU/L 44-121 Not Available [facility]) [address] [place], [address], 02/10/2024 12:37:33 02/09/20 24 02/10/2024 COMP. METAB OLIC PANEL (14) AST (SGOT) 24 IU/L 0-40 Not Available [facility] ([facility]) [address] [place], [address], 02/10/2024 12:37:33 02/09/20 24 02/10/2024 COMP. METAB OLIC PANEL (14) ALT (SGPT) 32 IU/L 0-32 Not Available [facility] ([facility]) [address] [place], [address], 02/10/2024 12:37:33 02/09/20 24 02/10/2024 VITAM IN B12 AND FOLAT E vitamin B12 798 pg/mL 232-12 45 Not Available [facility] ([facility]) [address] [facility], [place], [address], 02/10/2024 12:37:34 02/09/20 24 02/10/2024 VITAM IN B12 AND FOLAT E folate (folic acid), serum >20.0 NG/mL >3.0 A serum folat e luke ntrat ion of less than 3.1 ng/mL is consi dered to repre sent clini ayah defic iency . Not Available [facility] ([facility]) [address] [place], [address], 02/10/2024 12:37:34 02/09/20 24 02/10/2024 HEMOG LOBIN A1C hemoglobin A1C 5.4 % 4.8-5. 6 Predi abete s: 5.7 - 6.4 Diabe pacheco: >6.4 Glyce karissa contr ol for adult s with diabe pacheco: <7.0 Not Available [facility] ([facility]) [address] [place], [address], 02/10/2024 12:37:34 02/09/20 24 02/10/2024 CBC WITH DIFFE RENTI AL/PL ATELE T WBC 6.7 x10e3 /uL 3.4-10 .8 Not Available [facility] ([facility]) [address] [place], [address], 02/10/2024 12:37:35 02/09/20 24 02/10/2024 CBC WITH DIFFE RENTI AL/PL ATELE T RBC 5.18 x10e6 /uL 3.77-5 .28 Not Available [facility] ([facility]) [address] [place], [address], 02/10/2024 12:37:35 02/09/20 24 02/10/2024 CBC WITH DIFFE RENTI AL/PL ATELE T hemoglobin 15.2 g/dL 11.1-1 5.9 Not Available [facility] ([facility]) [address] [place], [address], 02/10/2024 12:37:35 02/09/20 24 02/10/2024 CBC WITH DIFFE RENTI AL/PL ATELE T hematocrit 46.3 % 34.0-4 6.6 Not Available [facility] ([facility]) [address] [place], [address], 02/10/2024 12:37:35 02/09/20 24 02/10/2024 CBC WITH DIFFE RENTI AL/PL ATELE T MCV 89 fL 79-97 Not Available [facility] ([facility]) [address] [place], [address], 02/10/2024 12:37:35 02/09/20 24 02/10/2024 CBC WITH DIFFE RENTI AL/PL ATELE T MCH 29.3 pg 26.6-3 3.0 Not Available [facility] ([facility]) [address] [place], [address], 02/10/2024 12:37:35 02/09/20 24 02/10/2024 CBC WITH DIFFE RENTI AL/PL ATELE T MCHC 32.8 g/dL 31.5-3 5.7 Not Available [facility] ([facility]) [address] [facility], [place], [address], 02/10/2024 12:37:35 02/09/20 24 02/10/2024 CBC WITH DIFFE RENTI AL/PL ATELE T RDW 12.1 % 11.7-1 5.4 Not Available [facility] ([facility]) [address] [facility], [place], [address], 02/10/2024 12:37:35 02/09/20 24 02/10/2024 CBC WITH DIFFE RENTI AL/PL ATELE T platelets 366 x10e3 /uL 150-45 0 Not Available [facility] ([facility]) [address] [facility], [place], [address], 02/10/2024 12:37:35 02/09/20 24 02/10/2024 CBC WITH DIFFE RENTI AL/PL ATELE T neutrophils 60 % notest ab. Not Available [facility] ([facility]) [address] [facility], [place], [address], 02/10/2024 12:37:35 02/09/20 24 02/10/2024 CBC WITH DIFFE RENTI AL/PL ATELE T lymphs 27 % notest ab. Not Available [facility] ([facility]) [address] [facility], [place], [address], 02/10/2024 12:37:35 02/09/20 24 02/10/2024 CBC WITH DIFFE RENTI AL/PL ATELE T monocytes 10 % notest ab. Not Available [facility] ([facility]) [address] [facility], [place], [address], 02/10/2024 12:37:35 02/09/20 24 02/10/2024 CBC WITH DIFFE RENTI AL/PL ATELE T eos 2 % notest ab. Not Available [facility] ([facility]) [address] [place], [address], 02/10/2024 12:37:35 02/09/20 24 02/10/2024 CBC WITH DIFFE RENTI AL/PL ATELE T basos 1 % notest ab. Not Available [facility] ([facility]) [address] [place], [address], 02/10/2024 12:37:35 02/09/20 24 02/10/2024 CBC WITH DIFFE RENTI AL/PL ATELE T neutrophils (absolute) 4.0 x10e3 /uL 1.4-7. 0 Not Available [facility] ([facility]) [address] [place], [address], 02/10/2024 12:37:35 02/09/20 24 02/10/2024 CBC WITH DIFFE RENTI AL/PL ATELE T lymphs (absolute) 1.8 x10e3 /uL 0.7-3. 1 Not Available [facility] ([facility]) [address] [place], [address], 02/10/2024 12:37:35 02/09/20 24 02/10/2024 CBC WITH DIFFE RENTI AL/PL ATELE T monocytes(ab solute) 0.7 x10e3 /uL 0.1-0. 9 Not Available [facility] ([facility]) [address] [place], [address], 02/10/2024 12:37:35 02/09/20 24 02/10/2024 CBC WITH DIFFE RENTI AL/PL ATELE T eos (absolute) 0.1 x10e3 /uL 0.0-0. 4 Not Available [facility] ([facility]) [address] [place], [address], 02/10/2024 12:37:35 02/09/20 24 02/10/2024 CBC WITH DIFFE RENTI AL/PL ATELE T baso (absolute) 0.1 x10e3 /uL 0.0-0. 2 Not Available [facility] ([facility]) [address] [facility], [place], [address], 02/10/2024 12:37:35 02/09/20 24 02/10/2024 CBC WITH DIFFE RENTI AL/PL ATELE T immature granulocytes 0 % notest ab. Not Available [facility] ([facility]) [address] [facility], [place], [address], 02/10/2024 12:37:35 02/09/20 24 02/10/2024 CBC WITH DIFFE RENTI AL/PL ATELE T immature grans (abs) 0.0 x10e3 /uL 0.0-0. 1 Not Available [facility] ([facility]) [address] [facility], [place], [address], 02/10/2024 12:37:35 02/26/20 25 02/25/2025 MAMMO , scree lisy, digit al, bilat eral No observ ation record ed. [facility] [address] [place], [address], 02/28/2025 15:46:25 Result Notes None recorded. Problems Name Problem SNOMED Code Status Onset Date Resolution Date Notes Provider Name and Address Organization Details Recorded Time Irritable bowel syndrome with diarrhea 453544813 Active 2023 REMY Stewart Attn: Sheldon moser,[address] [facility], [place], [address], [facility] 4 00:36:40 Migraine 37140435 Active 2023 REMY Stewart Attn: Sheldon moser,[address] [facility], [place], [address], [facility] 4 00:36:51 Long-term drug therapy Active 2023 REMY Stewart Attn: Sheldon moser,[address], [place], [address], [facility] 4 00:36:55 Body mass index 20-24 - normal 600960013 Active 2024 Caridad Melchor MA null, [facility] 5 09:08:01 Hyperlipidemia 72636628 Active 2024 REMY Stewart Attn: Sheldon moser,[address], [place], [address], [facility] 5 09:29:08 Problem Notes None recorded. Procedures Surgical History Date Name Laterality Status Provider Name and Address Organization Details Recorded Time Tonsillectomy completed Caridad Melchor MA [facility] 02/01/2024 12:18:59 Imaging Results None recorded. Procedure Notes None recorded. Medical Equipment None Reported. Allergies Allergen ID Allergen Name Allergen Category Reaction Reaction Severity Criticality Documentation Date Start Date Code Code System Note Provider Name and Address Organization Details Recorded Time 319471 Cefzil medicatio n rash severe high 03/07/2024 16841 1 RxNorm Shantelle Stewart LPN null, [facility] 4 10:54:55 Medications Name Sig Start [...] Updated DateTime 4 167.64 cm 24.1 kg/m2 16903.6 2 g 20 /min 99 % 99 % 108 /min 136/82 mm[Hg] Caridad Melchor MA [facility] 4 11:43:22 Date Recorded Respiratory rate Systolic And Diastolic Provider Name and Address Organization Details Last Updated DateTime 02/05/2025 18 /min 110/80 mm[Hg] REMY Stewart Attn: Accounting,[address] [place], [address], [facility] 02/05/2025 09:32:09 Date Recorded Body weight Body mass index (BMI) Body height Oxygen saturation Oxygen saturation in Arterial blood by Pulse oximetry Heart rate Systolic And Diastolic Provider Name and Address Organization Details Last Updated DateTime 5 88300.4 9 g 23.6 kg/m2 167.64 cm 98 % 98 % 118 /min 142/80 mm[Hg] Caridad Melchor MA [facility] 5 09:09:19 Social History Question Answer Notes LastModified by Organizat ion Details LastModified Time Tobacco Smoking Status Never Smoker Caridad Melchor MA null, [facility] 01/31/2024 12:10:46 Do You Have An [...] Reflux (GERD) N Cancer N Stroke N Headaches Y Kidney or Bladder Problems N Skin Problems N Asthma N Allergies N Hepatitis N High Cholesterol N Liver Disease N Thyroid Problems N GI Problems Y Anemia N Heart Attack ([place]) N Diabetes N Seizures/Epilepsy N Heart Failure N Osteoporosis N Gynecological [...] Recorded Time DTaP 0 completed Not Available [facility] 02/05/2025 09:06:02 Influenza, split virus, trivalent, preservative 4 completed Not Available [facility] 02/05/2025 09:06:02 Influenza, split virus, quadrivalent, PF 5 completed Not Available [facility] 02/05/2025 09:06:02 Influenza, split virus, quadrivalent, PF 7 completed Not Available [facility] 02/05/2025 09:06:02 Influenza, MDCK, quadrivalent, PF 7 completed Not Available [facility] 02/05/2025 09:06:02 Influenza, MDCK, quadrivalent, PF 8 completed Not Available [facility] 02/05/2025 09:06:02 Influenza, MDCK, quadrivalent, PF 9 completed Not Available [facility] 02/05/2025 09:06:02 Influenza, MDCK, quadrivalent, PF 0 completed Not Available [facility] 02/05/2025 09:06:02 COVID-19, mRNA, LNP-S, PF, 30 mcg/0.3 mL dose 1 completed Not Available [facility] 02/05/2025 09:06:02 COVID-19, mRNA, LNP-S, PF, 30 mcg/0.3 mL dose 1 completed Not Available [facility] 02/05/2025 09:06:02 Influenza, MDCK, quadrivalent, PF 1 completed Not Available [facility] 02/05/2025 09:06:02 COVID-19, mRNA, LNP-S, PF, 30 mcg/0.3 mL dose 1 completed Not Available [facility] 02/05/2025 09:06:02 Influenza, MDCK, quadrivalent, PF 2 completed Not Available [facility] 02/05/2025 09:06:02 Influenza, MDCK, quadrivalent, PF 3 completed Not Available [facility] 02/05/2025 09:06:02 Influenza, MDCK, trivalent, PF 4 completed Not Available [facility] 02/05/2025 09:06:02 Past Encounters Encounter ID Performer Location Encounter Start Date Encounter Closed Date Diagnosis/Indication Diagnosis SNOMED-CT Code Diagnosis ICD10 Code Diagnosis Note [id number] Seng Angela MD [place] [address] [facility] [address] [place] [address] 02/01/2024 11:21:00 02/01/2024 12:16:49 Adult health examination 083042530 Z00.01 annual wellness completed Cholesterol screening 27 0114322 Z13.220 fasting lipids due. Diabetes m ellitus screening 997978185 Z13.1 a1c screening due Thyroid di sorder screening 341865297 Z13.29 routine thyroid panel due Migraine 85628686 G43.90 9 refill on sumatripta n 50mg as directed Irritable bowel syndrome with diarrhea 318743469 K58.0 on colesevela m tablets daily. Long-term drug therapy 521135712 Z79.899 cmp, cbc and b12, folate labs are due Screening for malignant neoplasm of colon 420360848 Z12.11 pt opts for cologuard screening method. [id number] Seng Angela MD [facility] - [facility] [address] [place] [address] 02/05/2025 08:52:12 02/05/2025 09:46:53 Body mass index 20-24 - normal 086971813 Z68.23 BMI is 23.6 Adult heal th examination 890008517 Z00.01 annual wellness completed Diabetes m ellitus screening 071514638 Z13.1 a1c screening due Thyroid di sorder screening 537661475 Z13.29 routine thyroid panel due Migraine 42633122 G43.90 9 on sumatripta n 50mg as directed, stable Irritable bowel syndrome with diarrhea 530300481 K58.0 on colesevela m tablets daily. Long-term drug therapy 780607611 Z79.899 cmp, cbc and b12, folate labs are due Screening for malignant neoplasm of colon 067109238 Z12.11 pt opts for cologuard screening method. Hyperlipidemia 06079787 E78.5 History of hyperlipid emia, patient is not on medication directly but is on cholestyra mine tablets for her IBS D. Is due for updated fasting lipid panel Acute urin marcus tract infection 601282390 N39.0 For acute UTI symptoms start Bactrim DS twice daily and patient requests Uribel prescripti on Screening mammography 24 976468 Z12.31 Mammogram due Health Concerns Section Related Observation LastModified by Organization Detai ls LastModified Time None Recorded Concern Status LastModified by Organization Details LastModified Time None Recorded Advance Directives Directive Y: Payers Insurance Date Sequence Insurance Name Policy Number Policy Rice Covered Member ID Rice Member ID Guarantor Name 02/04/2025 1 [place] [id number] Ismael Pierre [id number] Cortney Pierre 02/05/2025 1 [employer] [id number] Ismael Pierre [id number] Cortney Pierre Notes Date Note Type Note Provider Name and Address Organization Details Recorded Time 02/01/2024 text/html IBS-D hx. pt takes questran capsules.Extensi ve UTI hx. full urology w/u. pelvic floor therapy did not help.migraine hx. pt has triptan therapy for PRN use. due for labs. due for colon screening. REMY Stewart Attn: Accounting,[address] [facility], [place], [address], [facility] 02/20/2024 00:37:38 02/05/2025 text/html IBS-D hx. pt takes questran capsules.Extensi ve UTI hx. full urology w/u. pelvic floor therapy did not help.migraine hx. pt has triptan therapy for PRN use.Due for labs and colon screening REMY Stewart Attn: Accounting,[address] [facility], [place], [address], [facility] 02/17/2025 21:18:51 OBGyn Episode No OBEpisode recorded.
--- OUTSIDE RECORDS SUMMARY | 2025-03-05 09:56 | XMS_ITS | Clinical Summary ---
Author Organization [facility] Address [address] [place] [address] Care Team Providers Care Ste[employer] Dock Name Role Phone Gerson Yusuf MD Primary Care Provider [phone] Allergies Active Allergy Reactions Criticality Noted Date [...] time Assessment & Plan (09/17/2021 12:14 PM COMMUNICATIONS STATION MANAGER): Occurs with menstrual cycle, typically lasts for [...] dinner Assessment & Plan (09/17/2021 12:12 PM COMMUNICATIONS STATION MANAGER): Stable, well controlled on cholestyramine; patient is [...] visit Assessment & Plan (09/17/2021 12:14 PM COMMUNICATIONS STATION MANAGER): Continues to have recurrent UTIs, follows with [...] CDT Gender Identity Female 09/17/2021 7:24 AM COMMUNICATIONS STATION MANAGER Sexual Orientation Straight 09/17/2021 7: 24 AM COMMUNICATIONS STATION MANAGER Obstetrics History Last Filed Vital Signs Vital [...] patient's age to complete this topic Insurance [facility] [place]ICE [place] [facility] Care Teams Stevedore Dock Relationship Specialty Start Date End Date [place] [address] PCP - General Family Medicine 05/08/20
== END 2025-03-05 09:42 | disposition home or self-care (01) ==
LOC: CHSIMG 09:43
PROVIDERS: PCP Physician Assistant; Visit Provider Physician Assistant
DX: N63.10 Unspecified lump in the right breast, unspecified quadrant (principal)
CPT/HCPCS: 76642; 77062; 77066; G0279